=== PATIENT | female | born 1960 | race Caucasian/White ===

== ENCOUNTER → 2017-05-17 | Outpatient (CLI) | payer OTHER | END | disposition home or self-care (01) | LOC: HKI 11:38 | DX: M16.12 Unilateral primary osteoarthritis, left hip (principal); I50.9 Heart failure, unspecified; E11.9 Type 2 diabetes mellitus without complications; I48.91 Unspecified atrial fibrillation | CPT/HCPCS: 73502 ==

== ENCOUNTER 2017-07-02 19:19 | Inpatient (IN) | payer OTHER ==
[2017-07-03 00:21] LABS: WHITE BLOOD COUNT 6.9 10^3/ul (4.8-10.8)
[2017-07-03 00:21] LABS: ADD MAN DIFF? NO; BASOPHILS % 0.3 % (0.0-2.0); EOSINOPHILS # 0.3 10^3/ul (0.0-0.5); EOSINOPHILS % 4.1 % (0.0-7.0); HEMATOCRIT 35.9 % (37.0-47.0); HEMOGLOBIN 11.4 g/dl (12.0-16.0); LYMPHOCYTES # 0.8 10^3/ul (0.8-2.9); LYMPHOCYTES % 11.6 % (15.0-51.0); MEAN CORPUSCULAR HEMOGLOBIN 29.7 pg (29.0-33.0); MEAN CORPUSCULAR HGB CONC 31.8 g/dl (32.0-37.0); MEAN CORPUSCULAR VOLUME 93.5 fl (82.0-101.0); MEAN PLATELET VOLUME 9.9 fl (7.4-10.4); MONOCYTE # 0.5 10^3/ul (0.3-0.9); MONOCYTES % 6.7 % (0.0-11.0); NEUTROPHIL # 5.3 10^3/ul (1.6-7.5); NEUTROPHILS % 76.9 % (39.0-77.0); NUCLEATED RED BLOOD CELLS% 0.4 /100WBC (0.0-0.0); PLATELET COUNT 235 10^3/UL (140-415); RED BLOOD COUNT 3.84 10^6/ul (4.20-5.40); RED CELL DISTRIBUTION WIDTH 16.5 % (11.5-14.5)
[2017-07-03 00:41] LABS: ANION GAP 17 (8-16); BLOOD UREA NITROGEN 20 mg/dl (7-20); CALCIUM 9.2 mg/dl (8.4-10.2); CARBON DIOXIDE 34 mmol/L (21-31); CHLORIDE 93 mmol/L (97-110); CREATININE 0.87 mg/dl (0.44-1.00); GLUCOSE 218 mg/dl (70-220); POTASSIUM 3.1 mmol/L (3.5-5.1); SODIUM 141 mmol/L (135-144)
[2017-07-03 00:49] LABS: B-TYPE NATRIURETIC PEPTIDE 2880 PG/ML (0-125)
[2017-07-03 01:05] LABS: INR 1.53; PARTIAL THROMBOPLASTIN TIME 33.9 Sec (25.0-35.0); PROTIME 18.7 Sec (11.9-14.9); PT RATIO 1.5
[2017-07-03 01:20] LABS: ETHANOL < 10.0 mg/dl
[2017-07-03] MEDS: FUROSEMIDE 40 MG INJ IV ×2 (02:22→17:37)
[2017-07-03] MEDS: POTASSIUM CHLORIDE (SR) 20 MEQ TAB PO ×3 (02:24→10:18)
[2017-07-03] MEDS ORDERED: ONDANSETRON 4 MG INJ IV (04:00)
[2017-07-03] MEDS ORDERED: DILTIAZEM 30 MG TAB PO (04:00)
[2017-07-03] MEDS ORDERED: GLUCOSE GEL 15 GRAM TUBE BUCCAL ×2 (04:30→09:30)
[2017-07-03] MEDS ORDERED: GLUCOSE GEL 15 GRAM TUBE PO ×4 (04:30→09:30)
[2017-07-03] MEDS ORDERED: GLUCAGON 1 MG INJ IM ×2 (04:30→09:30)
[2017-07-03] MEDS ORDERED: DEXTROSE 50% 50 ML SYRINGE IV ×4 (04:30→09:30)
[2017-07-03] MEDS: morphine 2 MG INJ IV ×4 (04:31→19:30)
[2017-07-03] MEDS: DILTIAZEM 25 MG INJ IV (04:53)
[2017-07-03] MEDS: AMIODARONE 900 MG in DEXTROSE 5% 482 ML IV ×3 (05:16→14:12)
[2017-07-03] MEDS: ACETAMINOPHEN 325 MG TAB PO (06:10)
[2017-07-03] MEDS: HYDROCODONE/APAP (10/325) TAB PO (07:34)
[2017-07-03] MEDS: metFORMIN 500 MG TAB PO ×2 (08:05→17:37)
[2017-07-03] MEDS: INSULIN ASPART [NOVOLOG] 3 ML PEN SC ×4 (08:07→20:30)
[2017-07-03] MEDS: LINAGLIPTIN 5 MG TABLET PO (08:56)
[2017-07-03] MEDS: FUROSEMIDE 40 MG TAB PO (08:57)
[2017-07-03] MEDS: AMIODARONE 200 MG TAB PO (08:57)
[2017-07-03] MEDS: BENAZEPRIL 20 MG TAB PO (08:57)
[2017-07-03] MEDS: APIXABAN 5 MG TABLET PO ×2 (08:57→20:30)
[2017-07-03] MEDS ORDERED: HEPARIN 5,000 UNIT/0.5 ML VIAL SC (09:00)
[2017-07-03] MEDS ORDERED: NON-FORMULARY/PATIENT OWN MED (Sitagliptin* (Januvia*) 100 MG) PO (09:00)
[2017-07-03 10:42] LABS: ADD MAN DIFF? NO
[2017-07-03 10:47] LABS: WHITE BLOOD COUNT 9.9 10^3/ul (4.8-10.8)
[2017-07-03 10:47] LABS: BASOPHILS % 0.4 % (0.0-2.0); EOSINOPHILS # 0.4 10^3/ul (0.0-0.5); EOSINOPHILS % 3.5 % (0.0-7.0); HEMATOCRIT 38.1 % (37.0-47.0); LYMPHOCYTES # 1.6 10^3/ul (0.8-2.9); MEAN CORPUSCULAR HEMOGLOBIN 29.7 pg (29.0-33.0); MEAN CORPUSCULAR HGB CONC 31.5 g/dl (32.0-37.0); MEAN CORPUSCULAR VOLUME 94.3 fl (82.0-101.0); MEAN PLATELET VOLUME 10.1 fl (7.4-10.4); MONOCYTE # 0.7 10^3/ul (0.3-0.9); NEUTROPHIL # 7.2 10^3/ul (1.6-7.5); NEUTROPHILS % 72.8 % (39.0-77.0); NUCLEATED RED BLOOD CELLS% 0.4 /100WBC (0.0-0.0); PLATELET COUNT 240 10^3/UL (140-415); RED BLOOD COUNT 4.04 10^6/ul (4.20-5.40); RED CELL DISTRIBUTION WIDTH 16.5 % (11.5-14.5)
[2017-07-03 10:55] LABS: HEMOGLOBIN A1C 8.6 % (0-5.9)
[2017-07-03 11:03] LABS: ALANINE AMINOTRANSFERASE 26 IU/L (13-69); ALBUMIN 4.4 g/dl (3.3-4.9); ALBUMIN/GLOBULIN RATIO 1.15; ALKALINE PHOSPHATASE 131 IU/L (42-121); ANION GAP 22 (8-16); ASPARTATE AMINO TRANSFERASE 30 IU/L (15-46); BILIRUBIN,INDIRECT 2.3 mg/dl (0-1.1); BILIRUBIN,TOTAL 2.4 mg/dl (0.2-1.3); BLOOD UREA NITROGEN 18 mg/dl (7-20); CALCIUM 9.4 mg/dl (8.4-10.2); CARBON DIOXIDE 30 mmol/L (21-31); CHLORIDE 95 mmol/L (97-110); CHOL/HDL RATIO 6.9 RATIO; CHOLESTEROL 118 mg/dl (100-200); CREATININE 0.98 mg/dl (0.44-1.00); GLUCOSE 179 mg/dl (70-220); HDL CHOLESTEROL 17 mg/dl (37-92); LDL CHOLESTEROL,CALCULATED 85 mg/dl; MAGNESIUM 1.7 mg/dl (1.7-2.5); POTASSIUM 3.9 mmol/L (3.5-5.1); SODIUM 143 mmol/L (135-144); TOTAL PROTEIN 8.2 g/dl (6.1-8.1); TRIGLYCERIDES 78 mg/dl (0-149)
[2017-07-03] MEDS: MAGNESIUM SULFATE 2 GM/50 ML 50 ML IVPB (19:30)
[2017-07-03 20:03] LABS: CANNABINOIDS Positive (NEGATIVE)
[2017-07-03 20:04] LABS: BARBITURATES Negative (NEGATIVE); BENZODIAZEPINES Negative (NEGATIVE); COCAINE Negative (NEGATIVE); OPIATES Positive (NEGATIVE)
[2017-07-03 20:09] LABS: AMPHETAMINE/METHAMPHETAMINE POSITIVE (NEGATIVE)
[2017-07-03] MEDS: LEVETIRACETAM 500 MG TAB PO (20:38)
[2017-07-04] MEDS: HYDROCODONE/APAP (10/325) TAB PO (01:29)
[2017-07-04] MEDS: ACCU-CHEK XX (02:00)
[2017-07-04] MEDS: MIDODRINE 5 MG TAB PO (04:28)
[2017-07-04] MEDS: ALBUMIN HUMAN 25% 100 ML IV (04:29)
[2017-07-04] MEDS: SOD CHLORIDE 0.9% 500 ML IV (04:30)
[2017-07-04] MEDS: FUROSEMIDE 40 MG INJ IV (05:35)
[2017-07-04 07:02] LABS: ANION GAP 20 (8-16); BLOOD UREA NITROGEN 25 mg/dl (7-20); CARBON DIOXIDE 31 mmol/L (21-31); CHLORIDE 94 mmol/L (97-110); CREATININE 1.58 mg/dl (0.44-1.00); GLUCOSE 147 mg/dl (70-220); MAGNESIUM 2.2 mg/dl (1.7-2.5); POTASSIUM 4.2 mmol/L (3.5-5.1); SODIUM 141 mmol/L (135-144)
[2017-07-04] MEDS: metFORMIN 500 MG TAB PO ×2 (07:52→17:30)
[2017-07-04] MEDS: INSULIN ASPART [NOVOLOG] 3 ML PEN SC ×4 (07:57→20:30)
[2017-07-04] MEDS: BENAZEPRIL 20 MG TAB PO (09:00)
[2017-07-04] MEDS: LINAGLIPTIN 5 MG TABLET PO (09:05)
[2017-07-04] MEDS: APIXABAN 5 MG TABLET PO ×2 (09:05→20:27)
[2017-07-04] MEDS: LEVETIRACETAM 500 MG TAB PO ×2 (09:05→20:27)
[2017-07-04] MEDS: POLYETHYLENE GLYCOL 17 GM PACKET PO (10:52)
[2017-07-04] MEDS: ACETAMINOPHEN 325 MG TAB PO ×2 (13:29→20:27)
[2017-07-04] MEDS ORDERED: POLYETHYLENE GLYCOL 17 GM PACKET PO (14:30)
[2017-07-04] MEDS: DIGOXIN 500 MCG INJ IV (15:28)
[2017-07-04] MEDS: FUROSEMIDE 20 MG INJ IV (17:36)
[2017-07-04] MEDS: SENNA TAB PO (20:26)
[2017-07-04] MEDS: DOCUSATE SODIUM 100 MG CAP PO (20:26)
[2017-07-04] MEDS: METOPROLOL 25 MG TAB PO (20:27)
[2017-07-05] MEDS: ACETAMINOPHEN 325 MG TAB PO ×2 (01:27→09:28)
[2017-07-05] MEDS: ACCU-CHEK XX (02:00)
[2017-07-05 08:23] LABS: ANION GAP 18 (8-16); BLOOD UREA NITROGEN 31 mg/dl (7-20); CALCIUM 9.1 mg/dl (8.4-10.2); CARBON DIOXIDE 28 mmol/L (21-31); CHLORIDE 97 mmol/L (97-110); CREATININE 1.57 mg/dl (0.44-1.00); GLUCOSE 135 mg/dl (70-220); MAGNESIUM 2.2 mg/dl (1.7-2.5); POTASSIUM 4.7 mmol/L (3.5-5.1); SODIUM 138 mmol/L (135-144)
[2017-07-05] MEDS: INSULIN ASPART [NOVOLOG] 3 ML PEN SC ×4 (08:39→21:00)
[2017-07-05] MEDS: metFORMIN 500 MG TAB PO (09:28)
[2017-07-05] MEDS: SENNA TAB PO ×2 (11:08→20:52)
[2017-07-05] MEDS: DOCUSATE SODIUM 100 MG CAP PO ×2 (11:10→20:46)
[2017-07-05] MEDS: METOPROLOL 25 MG TAB PO ×2 (11:10→20:47)
[2017-07-05] MEDS: LEVETIRACETAM 500 MG TAB PO (11:11)
[2017-07-05] MEDS: APIXABAN 5 MG TABLET PO ×2 (11:11→20:46)
[2017-07-05] MEDS: LINAGLIPTIN 5 MG TABLET PO (11:11)
[2017-07-05] MEDS: morphine 2 MG INJ IV (11:32)
[2017-07-05] MEDS: HYDROCODONE/APAP (10/325) TAB PO (23:57)
[2017-07-06] MEDS: morphine 2 MG INJ IV ×2 (01:06→12:44)
[2017-07-06] MEDS: ACCU-CHEK XX (02:00)
[2017-07-06] MEDS: INSULIN ASPART [NOVOLOG] 3 ML PEN SC ×4 (07:55→21:28)
[2017-07-06] MEDS: APIXABAN 5 MG TABLET PO ×2 (08:42→21:19)
[2017-07-06] MEDS: SENNA TAB PO ×2 (08:42→21:20)
[2017-07-06] MEDS: METOPROLOL 25 MG TAB PO ×2 (08:42→21:20)
[2017-07-06] MEDS: ACETAMINOPHEN 325 MG TAB PO (08:42)
[2017-07-06] MEDS: DOCUSATE SODIUM 100 MG CAP PO ×2 (08:42→21:20)
[2017-07-06 09:03] LABS: ADD MAN DIFF? NO
[2017-07-06 09:09] LABS: WHITE BLOOD COUNT 7.1 10^3/ul (4.8-10.8)
[2017-07-06 09:09] LABS: BASOPHILS % 0.6 % (0.0-2.0); EOSINOPHILS # 0.4 10^3/ul (0.0-0.5); EOSINOPHILS % 5.7 % (0.0-7.0); HEMATOCRIT 36.5 % (37.0-47.0); HEMOGLOBIN 11.3 g/dl (12.0-16.0); LYMPHOCYTES # 1.2 10^3/ul (0.8-2.9); LYMPHOCYTES % 16.4 % (15.0-51.0); MEAN CORPUSCULAR HEMOGLOBIN 29.4 pg (29.0-33.0); MEAN CORPUSCULAR VOLUME 94.8 fl (82.0-101.0); MEAN PLATELET VOLUME 10.6 fl (7.4-10.4); MONOCYTE # 0.6 10^3/ul (0.3-0.9); MONOCYTES % 8.9 % (0.0-11.0); NEUTROPHIL # 4.8 10^3/ul (1.6-7.5); NEUTROPHILS % 68.1 % (39.0-77.0); PLATELET COUNT 220 10^3/UL (140-415); RED BLOOD COUNT 3.85 10^6/ul (4.20-5.40); RED CELL DISTRIBUTION WIDTH 16.6 % (11.5-14.5)
[2017-07-06 09:42] LABS: ALANINE AMINOTRANSFERASE 21 IU/L (13-69); ALBUMIN 3.8 g/dl (3.3-4.9); ALBUMIN/GLOBULIN RATIO 1.11; ALKALINE PHOSPHATASE 103 IU/L (42-121); ANION GAP 17 (8-16); ASPARTATE AMINO TRANSFERASE 30 IU/L (15-46); BILIRUBIN,INDIRECT 0.8 mg/dl (0-1.1); BILIRUBIN,TOTAL 0.8 mg/dl (0.2-1.3); BLOOD UREA NITROGEN 25 mg/dl (7-20); CALCIUM 9.5 mg/dl (8.4-10.2); CARBON DIOXIDE 32 mmol/L (21-31); CHLORIDE 95 mmol/L (97-110); CREATININE 0.91 mg/dl (0.44-1.00); GLUCOSE 139 mg/dl (70-220); POTASSIUM 4.4 mmol/L (3.5-5.1); SODIUM 140 mmol/L (135-144); TOTAL PROTEIN 7.2 g/dl (6.1-8.1)
[2017-07-06] MEDS: morphine LIQ (10 MG/5 ML) CUP PO ×2 (17:15→21:18)
[2017-07-06] MEDS: HYDROCODONE/APAP (10/325) TAB PO (23:56)
[2017-07-07] MEDS: ACCU-CHEK XX (02:00)
[2017-07-07] MEDS: morphine LIQ (10 MG/5 ML) CUP PO ×2 (03:22→10:53)
[2017-07-07] MEDS: INSULIN ASPART [NOVOLOG] 3 ML PEN SC ×2 (07:55→12:11)
[2017-07-07] MEDS: DOCUSATE SODIUM 100 MG CAP PO (08:25)
[2017-07-07] MEDS: FUROSEMIDE 40 MG TAB PO (08:25)
[2017-07-07] MEDS: SENNA TAB PO (08:25)
[2017-07-07] MEDS: APIXABAN 5 MG TABLET PO (08:26)
[2017-07-07] MEDS: METOPROLOL 25 MG TAB PO (08:26)
[2017-07-07] MEDS: HYDROCODONE/APAP (10/325) TAB PO ×2 (08:28→15:09)
[2017-07-07 14:34] LABS: ADD MAN DIFF? NO
[2017-07-07 14:37] LABS: WHITE BLOOD COUNT 6.3 10^3/ul (4.8-10.8)
[2017-07-07 14:37] LABS: BASOPHIL # 0.1 10^3/ul (0.0-0.1); EOSINOPHILS # 0.3 10^3/ul (0.0-0.5); EOSINOPHILS % 5.2 % (0.0-7.0); HEMOGLOBIN 11.3 g/dl (12.0-16.0); LYMPHOCYTES # 1.1 10^3/ul (0.8-2.9); LYMPHOCYTES % 17.8 % (15.0-51.0); MEAN CORPUSCULAR HEMOGLOBIN 28.8 pg (29.0-33.0); MEAN CORPUSCULAR HGB CONC 30.5 g/dl (32.0-37.0); MEAN CORPUSCULAR VOLUME 94.4 fl (82.0-101.0); MEAN PLATELET VOLUME 10.2 fl (7.4-10.4); MONOCYTE # 0.5 10^3/ul (0.3-0.9); MONOCYTES % 8.3 % (0.0-11.0); NEUTROPHIL # 4.3 10^3/ul (1.6-7.5); NEUTROPHILS % 67.4 % (39.0-77.0); PLATELET COUNT 191 10^3/UL (140-415); RED BLOOD COUNT 3.92 10^6/ul (4.20-5.40); RED CELL DISTRIBUTION WIDTH 16.6 % (11.5-14.5)
[2017-07-07 14:57] LABS: MAGNESIUM 1.5 mg/dl (1.7-2.5)
[2017-07-07 14:58] LABS: ANION GAP 15 (8-16); BLOOD UREA NITROGEN 23 mg/dl (7-20); CALCIUM 9.6 mg/dl (8.4-10.2); CARBON DIOXIDE 35 mmol/L (21-31); CHLORIDE 96 mmol/L (97-110); CREATININE 0.82 mg/dl (0.44-1.00); GLUCOSE 162 mg/dl (70-220); SODIUM 141 mmol/L (135-144)
[2017-07-08 03:52] LABS: URINE DRUG SCREEN RESULT DRUG(S) DETECTED:
== END 2017-07-07 17:00 | disposition home health service (06) | DRG 292 ==
LOC: TEL 07-03 02:00 → FTE 19:19
DX: I11.0 Hypertensive heart disease with heart failure (principal); N17.9 Acute kidney failure, unspecified; I47.2 Ventricular tachycardia; I50.23 Acute on chronic systolic (congestive) heart failure; I42.9 Cardiomyopathy, unspecified; F15.10 Other stimulant abuse, uncomplicated; D64.9 Anemia, unspecified; E11.9 Type 2 diabetes mellitus without complications; I48.2 Chronic atrial fibrillation; E87.6 Hypokalemia; K59.00 Constipation, unspecified; Z87.891 Personal history of nicotine dependence; Z79.4 Long term (current) use of insulin; Z86.73 Personal history of transient ischemic attack (TIA), and cerebral infarction without residual deficits; Z79.02 Long term (current) use of antithrombotics/antiplatelets
CPT/HCPCS: 36415; 71045; 80048; 80053; 80061; 80306; 80307; 82962; 83036; 83735; 83880; 84100; 84443; 85025; 85610; 85730; 93005; 93970; 96374; 97161; 99285-25; G0378

== ENCOUNTER 2017-08-15 02:15 | Inpatient (IN) | payer OTHER ==
[2017-08-15 04:08] LABS: ADD MAN DIFF? NO
[2017-08-15 04:34] LABS: INR 1.38; PARTIAL THROMBOPLASTIN TIME 35.8 Sec (25.0-35.0); PROTIME 17.2 Sec (11.9-14.9); PT RATIO 1.3
[2017-08-15 04:37] LABS: ALANINE AMINOTRANSFERASE 19 IU/L (13-69); ALBUMIN 4.4 g/dl (3.3-4.9); ALBUMIN/GLOBULIN RATIO 1.12; ALKALINE PHOSPHATASE 106 IU/L (42-121); ANION GAP 19 (8-16); ASPARTATE AMINO TRANSFERASE 35 IU/L (15-46); BILIRUBIN,INDIRECT 1.1 mg/dl (0-1.1); BILIRUBIN,TOTAL 1.1 mg/dl (0.2-1.3); BLOOD UREA NITROGEN 24 mg/dl (7-20); CARBON DIOXIDE 30 mmol/L (21-31); CHLORIDE 99 mmol/L (97-110); CREATININE 0.95 mg/dl (0.44-1.00); GLUCOSE 143 mg/dl (70-220); LIPASE 47 U/L (23-300); POTASSIUM 4.5 mmol/L (3.5-5.1); SODIUM 143 mmol/L (135-144); TOTAL PROTEIN 8.3 g/dl (6.1-8.1)
[2017-08-15 04:47] LABS: TROPONIN-I 0.036 ng/ml (0.000-0.120)
[2017-08-15] MEDS: KETOROLAC 15 MG INJ IV (04:57)
[2017-08-15 04:59] LABS: WHITE BLOOD COUNT 11.7 10^3/ul (4.8-10.8)
[2017-08-15 04:59] LABS: BASOPHIL # 0.1 10^3/ul (0.0-0.1); BASOPHILS % 0.4 % (0.0-2.0); EOSINOPHILS # 0.2 10^3/ul (0.0-0.5); EOSINOPHILS % 1.4 % (0.0-7.0); HEMATOCRIT 40.5 % (37.0-47.0); HEMOGLOBIN 13.2 g/dl (12.0-16.0); LYMPHOCYTES # 0.8 10^3/ul (0.8-2.9); LYMPHOCYTES % 6.7 % (15.0-51.0); MEAN CORPUSCULAR HEMOGLOBIN 28.8 pg (29.0-33.0); MEAN CORPUSCULAR HGB CONC 32.6 g/dl (32.0-37.0); MEAN CORPUSCULAR VOLUME 88.2 fl (82.0-101.0); MEAN PLATELET VOLUME 9.9 fl (7.4-10.4); MONOCYTE # 0.5 10^3/ul (0.3-0.9); MONOCYTES % 4.6 % (0.0-11.0); NEUTROPHIL # 10.1 10^3/ul (1.6-7.5); NEUTROPHILS % 86.4 % (39.0-77.0); PLATELET COUNT 241 10^3/UL (140-415); RED BLOOD COUNT 4.59 10^6/ul (4.20-5.40); RED CELL DISTRIBUTION WIDTH 17.5 % (11.5-14.5)
[2017-08-15] MEDS ORDERED: ALBUTEROL/IPRATROPIUM (NEB) 3 ML AMP HHN (05:30)
[2017-08-15] MEDS ORDERED: NACL 0.9% 3 ML SYG IV (05:30)
[2017-08-15] MEDS ORDERED: ACETAMINOPHEN 325 MG TAB PO (05:30)
[2017-08-15] MEDS: morphine 2 MG INJ IV ×2 (05:34→14:58)
[2017-08-15] MEDS: ONDANSETRON 4 MG INJ IV (05:34)
[2017-08-15] MEDS: LORAZEPAM 2 MG INJ IV (06:07)
[2017-08-15] MEDS: FUROSEMIDE 40 MG TAB PO ×2 (07:20→17:22)
[2017-08-15] MEDS: APIXABAN 5 MG TABLET PO ×2 (08:31→20:43)
[2017-08-15] MEDS: AMIODARONE 200 MG TAB PO (08:31)
[2017-08-15] MEDS: BENAZEPRIL 20 MG TAB PO (09:00)
[2017-08-15] MEDS ORDERED: HYDROCODONE/APAP (5/325) TAB PO (09:00)
[2017-08-15] MEDS ORDERED: HEPARIN 5,000 UNIT/0.5 ML VIAL SC (09:00)
[2017-08-15] MEDS ORDERED: GLUCOSE GEL 15 GRAM TUBE PO ×2 (13:00)
[2017-08-15] MEDS ORDERED: DEXTROSE 50% 50 ML SYRINGE IV ×2 (13:00)
[2017-08-15] MEDS ORDERED: GLUCOSE GEL 15 GRAM TUBE BUCCAL (13:00)
[2017-08-15] MEDS ORDERED: GLUCAGON 1 MG INJ IM (13:00)
[2017-08-15] MEDS: INSULIN ASPART [NOVOLOG] 3 ML PEN SC ×3 (13:30→20:44)
[2017-08-15] MEDS ORDERED: morphine LIQ (10 MG/5 ML) CUP PO ×2 (18:00→19:00)
[2017-08-16] MEDS: HYDROCODONE/APAP (5/325) TAB PO ×4 (00:45→23:55)
[2017-08-16] MEDS: ACCU-CHEK XX (02:00)
[2017-08-16] MEDS: FUROSEMIDE 40 MG TAB PO (05:29)
[2017-08-16] MEDS: APIXABAN 5 MG TABLET PO ×2 (08:53→21:43)
[2017-08-16] MEDS: AMIODARONE 200 MG TAB PO (08:54)
[2017-08-16] MEDS: BENAZEPRIL 20 MG TAB PO (08:54)
[2017-08-16] MEDS: INSULIN ASPART [NOVOLOG] 3 ML PEN SC ×4 (08:57→21:00)
[2017-08-16 13:40] LABS: ADD UMIC YES; UR AMORPHOUS CRYSTAL FEW /HPF (NONE SEEN); UR ASCORBIC ACID NEGATIVE (NEGATIVE); UR BACTERIA FEW /HPF (NONE SEEN); UR BILIRUBIN (Dip) NEGATIVE (NEGATIVE); UR BLOOD (Dip) NEGATIVE (NEGATIVE); UR CLARITY SLIGHTLY CLOUDY (CLEAR); UR COLOR YELLOW (YELLOW); UR GLUCOSE (Dip) NEGATIVE (NEGATIVE); UR KETONES (Dip) NEGATIVE (NEGATIVE); UR LEUKOCYTE ESTERASE (Dip) TRACE Leu/ul (NEGATIVE); UR NITRITE (Dip) NEGATIVE (NEGATIVE); UR RBC 0 /HPF (0-5); UR SPECIFIC GRAVITY (Dip) 1.009 (1.003-1.030); UR TOTAL PROTEIN (Dip) NEGATIVE (NEGATIVE); UR UROBILINOGEN (Dip) 1+ mg/dL (NEGATIVE); UR WBC 2 /HPF (0-5)
[2017-08-16 14:13] LABS: AMPHETAMINE/METHAMPHETAMINE Negative (NEGATIVE); CANNABINOIDS Negative (NEGATIVE)
[2017-08-16 14:14] LABS: ADD MAN DIFF? NO
[2017-08-16 14:17] LABS: WHITE BLOOD COUNT 5.9 10^3/ul (4.8-10.8)
[2017-08-16 14:17] LABS: BASOPHILS % 0.5 % (0.0-2.0); EOSINOPHILS # 0.4 10^3/ul (0.0-0.5); EOSINOPHILS % 6.5 % (0.0-7.0); HEMATOCRIT 40.4 % (37.0-47.0); HEMOGLOBIN 12.6 g/dl (12.0-16.0); LYMPHOCYTES # 1.5 10^3/ul (0.8-2.9); MEAN CORPUSCULAR HEMOGLOBIN 28.1 pg (29.0-33.0); MEAN CORPUSCULAR HGB CONC 31.2 g/dl (32.0-37.0); MEAN PLATELET VOLUME 10.1 fl (7.4-10.4); MONOCYTE # 0.6 10^3/ul (0.3-0.9); MONOCYTES % 10.2 % (0.0-11.0); NEUTROPHIL # 3.4 10^3/ul (1.6-7.5); NEUTROPHILS % 57.5 % (39.0-77.0); PLATELET COUNT 192 10^3/UL (140-415); RED BLOOD COUNT 4.49 10^6/ul (4.20-5.40); RED CELL DISTRIBUTION WIDTH 17.3 % (11.5-14.5)
[2017-08-16 14:22] LABS: BARBITURATES Negative (NEGATIVE)
[2017-08-16 14:53] LABS: ALANINE AMINOTRANSFERASE 22 IU/L (13-69); ALBUMIN 3.9 g/dl (3.3-4.9); ALBUMIN/GLOBULIN RATIO 1.08; ALKALINE PHOSPHATASE 85 IU/L (42-121); ANION GAP 16 (8-16); ASPARTATE AMINO TRANSFERASE 36 IU/L (15-46); BILIRUBIN,INDIRECT 0.9 mg/dl (0-1.1); BILIRUBIN,TOTAL 0.9 mg/dl (0.2-1.3); BLOOD UREA NITROGEN 22 mg/dl (7-20); CALCIUM 9.2 mg/dl (8.4-10.2); CARBON DIOXIDE 35 mmol/L (21-31); CHLORIDE 95 mmol/L (97-110); CREATININE 0.84 mg/dl (0.44-1.00); GLUCOSE 212 mg/dl (70-220); POTASSIUM 4.5 mmol/L (3.5-5.1); SODIUM 141 mmol/L (135-144); TOTAL PROTEIN 7.5 g/dl (6.1-8.1)
[2017-08-16 15:03] LABS: MAGNESIUM 0.9 mg/dl (1.7-2.5)
[2017-08-16 15:38] LABS: BENZODIAZEPINES Negative (NEGATIVE); COCAINE Negative (NEGATIVE); OPIATES Positive (NEGATIVE)
[2017-08-16] MEDS: MAGNESIUM SULFATE 2 GM/50 ML 50 ML IVPB (15:54)
[2017-08-16] MEDS: FUROSEMIDE 40 MG INJ IV (17:11)
[2017-08-17] MEDS: ACCU-CHEK XX (02:00)
[2017-08-17] MEDS: HYDROCODONE/APAP (5/325) TAB PO ×2 (06:11→10:46)
[2017-08-17] MEDS: FUROSEMIDE 40 MG INJ IV (06:12)
[2017-08-17] MEDS: AMIODARONE 200 MG TAB PO (08:21)
[2017-08-17] MEDS: BENAZEPRIL 20 MG TAB PO (08:21)
[2017-08-17] MEDS: APIXABAN 5 MG TABLET PO (08:21)
[2017-08-17] MEDS: INSULIN ASPART [NOVOLOG] 3 ML PEN SC ×2 (08:23→12:10)
[2017-08-17 09:33] LABS: ANION GAP 14 (8-16); BLOOD UREA NITROGEN 27 mg/dl (7-20); CALCIUM 9.3 mg/dl (8.4-10.2); CARBON DIOXIDE 39 mmol/L (21-31); CHLORIDE 94 mmol/L (97-110); CREATININE 0.89 mg/dl (0.44-1.00); GLUCOSE 135 mg/dl (70-220); POTASSIUM 4.6 mmol/L (3.5-5.1); SODIUM 142 mmol/L (135-144)
== END 2017-08-17 16:40 | disposition home or self-care (01) | DRG 637 ==
LOC: E/R 02:15 → MS4 03:48
PROVIDERS: Internal Medicine
DX: E11.649 Type 2 diabetes mellitus with hypoglycemia without coma (principal); G93.41 Metabolic encephalopathy; I50.23 Acute on chronic systolic (congestive) heart failure; I42.9 Cardiomyopathy, unspecified; E86.0 Dehydration; M16.12 Unilateral primary osteoarthritis, left hip; E66.9 Obesity, unspecified; I48.91 Unspecified atrial fibrillation; I11.0 Hypertensive heart disease with heart failure; J44.9 Chronic obstructive pulmonary disease, unspecified; F15.10 Other stimulant abuse, uncomplicated; Z79.84 Long term (current) use of oral hypoglycemic drugs; Z86.73 Personal history of transient ischemic attack (TIA), and cerebral infarction without residual deficits; T50.905A Adverse effect of unspecified drugs, medicaments and biological substances, initial encounter
CPT/HCPCS: 36415; 70450; 71045; 73510; 80048; 80053; 80307; 81001; 82962; 83690; 83735; 84484; 85025; 85610; 85730; 87081; 93005; 93306; 96374; 96375; 97162; 99285-25

== ENCOUNTER → 2017-11-08 | Outpatient (CLI) | payer OTHER | END | disposition home or self-care (01) | LOC: HKI 10:32 | DX: M16.12 Unilateral primary osteoarthritis, left hip (principal) | CPT/HCPCS: Z7500 ==

== ENCOUNTER 2018-03-09 08:10 | Day surgery (SDC) | payer OTHER ==
[2018-03-09] MEDS ORDERED: TRANEXAMIC ACID 1,000 MG in NS 100 ML PRE-OP X1 IVPB (09:00)
[2018-03-09] MEDS ORDERED: CEFAZOLIN 2 GM/50 ML (PMX) 50 ML IVPB (09:00)
[2018-03-09] MEDS ORDERED: LACTATED RINGER'S 1,000 ML IV* (09:00)
[2018-03-09] MEDS ORDERED: TRANEXAMIC ACID 1,000 MG in NS 100 ML INTRA-OP X1 IVPB (09:00)
[2018-03-09] MEDS ORDERED: HIP PAIN COCKTAIL (CEFUROXIME) INJ (10:00)
== END 2018-03-09 11:25 | disposition home or self-care (01) ==
LOC: REC 08:10 → SDS 08:10
DX: M16.12 Unilateral primary osteoarthritis, left hip (principal); Z53.8 Procedure and treatment not carried out for other reasons
CPT/HCPCS: 82962